=== PATIENT | male | born 1970 | race Caucasian/White ===

== ENCOUNTER → 2016-08-07 | Outpatient (CLI) | payer OTHER ==
--- NOTE | 2016-08-07 14:16 | DIAGNOSTIC IMAGING REPORT ---
TWO VIEW CHEST CLINICAL HISTORY: Work-related injury. FINDINGS: PA and lateral chest radiographs are obtained. No prior studies are available for comparison at the time of dictation. The cardiomediastinal silhouette is unremarkable. The lungs and pleural spaces are clear. There is no pneumothorax. The bony thorax appears intact. Fusion hardware is partially visualized in the lower cervical spine. IMPRESSION: No active disease in the chest. Electronically signed by: Armando Barksdale M.D. 08/07/2016 2:14 PM Dictated Date/Time: 08/07/2016 2:13 PM
--- NOTE | 2016-08-07 14:22 | DIAGNOSTIC IMAGING REPORT ---
LEFT SCAPULA 2 VIEWS CLINICAL HISTORY: Left shoulder pain after fall. COMPARISON STUDY: None. FINDINGS: No fractures identified within the left scapula. The proximal left humerus and left clavicle are intact. 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 IMPRESSION: No fractures within the left scapula. Electronically signed by: Marcin Laura M.D. 08/07/2016 2:21 PM Dictated Date/Time: 08/07/2016 2:15 PM
== END | disposition home or self-care (01) ==
LOC: C.RAD1850 13:58
PROVIDERS: ATTEND Preventive Medicine Occupational Medicine
DX: S40.012A Contusion of left shoulder, initial encounter (principal); S20.219A Contusion of unspecified front wall of thorax, initial encounter; X58.XXXA Exposure to other specified factors, initial encounter